=== PATIENT | male | born 1965 | race Caucasian/White ===

== ENCOUNTER → 2020-06-23 | Outpatient (CLI) | payer BC ==
[~2020-06-23] MED LIST: ADDERALL 20 MG20 MG PO; LEXAPRO10 MG PO; LOSARTAN POTASS50 MG PO
== END ==
LOC: RAD 10:35
PROVIDERS: ATTEND Internal Medicine
DX: Z00.00 Encounter for general adult medical examination without abnormal findings (principal)
CPT/HCPCS: 71046

== ENCOUNTER 2022-08-29 22:05 | Inpatient (IN) | payer BC, OTHER ==
[~2022-08-29] VITALS: Ht 182.9 cm; Wt 98.6 kg
[~2022-08-29 22:05] MED LIST changes: +DEXAMETHASONE SOD PHOS INJ 4 MG/ML SDV ONE; +EPHEDRINE SULFATE INJ 50 MG/ML VIAL ONE; +GLYCOPYRROLATE INJ 0.2 MG/ML VIAL ONE; +LIDOCAINE HCL 2% LOCAL INJ 5 ML SDV VIAL INJ ONE; +POVIDONE IODINE 0.05% 0.05 % ML PO ONE; +PROPOFOL IV EMULSION 10 MG/ML 20 ML VIAL ONE
[2022-08-29] MEDS ORDERED: ONDANSETRON HCL INJ 2MG/ML 2ML 2 MG/ML VIAL IV STA (23:13)
[2022-08-29] MEDS ORDERED: SODIUM CHLORIDE 0.9% 1000ML 1,000 ML IV ONE (23:15)
[2022-08-29] MEDS ORDERED: Morphine 4mg INJECTION 4 MG/ML INJ IV ONE (23:15)
[2022-08-30] VITALS (9 sets, daily range): BP systolic 110–166; BP diastolic 74–94; PULSE 71–99; RESP 16–20; TEMP 97.6–98.9; O2SAT 95–100
[2022-08-30 00:34] LABS: BASOPHILS # (AUTO) 0.1 (0.0-0.1); EOSINOPHILS # (AUTO) 0.3 (0.0-0.4); EOSINOPHILS % 4.3 % (0.0-6.0); HEMATOCRIT 51.5 % (38.2-49.6); HEMOGLOBIN 16.7 g/dL (14.0-18.0); LYMPHOCYTES # (AUTO) 2.5 (1.0-3.2); LYMPHOCYTES % 39.6 % (18.0-39.1); MEAN CORPUSCULAR HGB CONC 32.4 g/dL (31-35); MEAN CORPUSCULAR VOLUME 92.5 fL (81-99); MONOCYTES # (AUTO) 0.5 (0.2-0.8); NEUTROPHILS # (AUTO) 2.9 (2.1-6.9); NEUTROPHILS % 46.8 % (38.7-80.0); PLATELET COUNT 259 x10e3/uL (140-360); RED BLOOD COUNT 5.57 x10e6/uL (4.3-5.7); RED CELL DISTRIBUTION WIDTH 13.4 % (11.7-14.4)
[2022-08-30] MEDS: Vancomycin IV 1 GM in SODIUM CHLORIDE 0.9% 250ML 250 ML IV SCH ×3 (00:37→20:42)
[2022-08-30 00:42] LABS: INR 0.82; PROTHROMBIN TIME 11.8 seconds (11.9-14.5)
[2022-08-30 00:43] LABS: PARTIAL THROMBOPLASTIN TIME 29.4 seconds (23.8-35.5)
[2022-08-30 00:52] LABS: ALBUMIN 3.9 g/dL (3.5-5.0); ALBUMIN/GLOBULIN RATIO 1.1 (0.8-2.0); ANION GAP 14.8 mmol/L (8-16); CALCIUM 9.3 mg/dL (8.4-10.2); CREATININE, SERUM 1.01 mg/dL (0.72-1.25); POTASSIUM 4.8 mmol/L (3.5-5.1)
[2022-08-30] MEDS: SODIUM CHLORIDE 0.9% 1000ML 1,000 ML IV SCH ×3 (03:28→16:51)
[2022-08-30] MEDS ORDERED: DEXMETHYLPHENID30 MG PO (03:55)
[2022-08-30] MEDS ORDERED: TESTOSTERONE75 G1 EXT (03:55)
[2022-08-30] MEDS ORDERED: DULOXETINE HCL60 MG PO (03:55)
[2022-08-30] MEDS: Morphine 4mg INJECTION 4 MG/ML INJ IV PRN ×4 (04:56→21:12)
[2022-08-30] MEDS: ONDANSETRON HCL INJ 2MG/ML 2ML 2 MG/ML VIAL IV PRN ×2 (04:56→21:12)
[2022-08-30] MEDS ORDERED: NEOSTIGMINE 1 MG/ML 10ML VIAL ONE (08:59)
[2022-08-30] MEDS ORDERED: BUPIVACAINE HCL 0.5% INJ 30 ML VIAL INJ ONE (08:59)
[2022-08-30] MEDS ORDERED: DEXAMETHASONE SOD PHOS INJ 4 MG/ML SDV ONE (08:59)
[2022-08-30] MEDS ORDERED: ACETAMINOPHEN 1000 MG/100 ML 100 ML IV ONE (09:09)
[2022-08-30] MEDS ORDERED: MIDAZOLAM HCL 2 MG/2 ML VIAL ONE (13:44)
[2022-08-30] MEDS ORDERED: FENTANYL CITRATE/PF 100MCG/2 ML INJ ONE (13:44)
[2022-08-30] MEDS: CEFTRIAXONE 2 GM in SODIUM CHLORIDE 0.9% 100 ML IV SCH (16:50)
[2022-08-30] MEDS: LORATADINE 10 MG TAB PO PRN (22:54)
[2022-08-31] VITALS (7 sets, daily range): BP systolic 103–156; BP diastolic 55–94; PULSE 69–89; RESP 18–20; TEMP 97.6–99; O2SAT 96–100
[2022-08-31] MEDS: ONDANSETRON HCL INJ 2MG/ML 2ML 2 MG/ML VIAL IV PRN ×6 (01:14→22:02)
[2022-08-31] MEDS: SODIUM CHLORIDE 0.9% 1000ML 1,000 ML IV SCH ×3 (01:14→16:44)
[2022-08-31] MEDS: Morphine 4mg INJECTION 4 MG/ML INJ IV PRN ×6 (01:15→22:02)
[2022-08-31 06:22] LABS: BASOPHILS % 0.4 % (0.0-1.0); EOSINOPHILS % 0.4 % (0.0-6.0); HEMATOCRIT 44.7 % (38.2-49.6); HEMOGLOBIN 14.2 g/dL (14.0-18.0); LYMPHOCYTES # (AUTO) 2.1 (1.0-3.2); LYMPHOCYTES % 19.2 % (18.0-39.1); MEAN CORPUSCULAR HEMOGLOBIN 29.7 pg (28-32); MEAN CORPUSCULAR HGB CONC 31.8 g/dL (31-35); MEAN CORPUSCULAR VOLUME 93.5 fL (81-99); MONOCYTES # (AUTO) 0.9 (0.2-0.8); MONOCYTES % 7.9 % (4.4-11.3); NEUTROPHILS # (AUTO) 7.8 (2.1-6.9); NEUTROPHILS % 71.6 % (38.7-80.0); PLATELET COUNT 222 x10e3/uL (140-360); RED BLOOD COUNT 4.78 x10e6/uL (4.3-5.7); RED CELL DISTRIBUTION WIDTH 13.2 % (11.7-14.4)
[2022-08-31 07:14] LABS: ALBUMIN/GLOBULIN RATIO 1.2 (0.8-2.0); ANION GAP 13.5 mmol/L (8-16); CALCIUM 8.3 mg/dL (8.4-10.2); CREATININE, SERUM 0.83 mg/dL (0.72-1.25)
[2022-08-31 07:15] LABS: POTASSIUM 3.5 mmol/L (3.5-5.1)
[2022-08-31] MEDS: Vancomycin IV 1 GM in SODIUM CHLORIDE 0.9% 250ML 250 ML IV SCH ×2 (09:13→20:00)
[2022-08-31] MEDS ORDERED: CHOLESTYRAMINE 4 GM PACKET PO PRN (09:30)
[2022-08-31] MEDS ORDERED: KETOROLAC TROMETHAMINE 30 MG/ML VIAL IV PRN (09:30)
[2022-08-31] MEDS: CEFTRIAXONE 2 GM in SODIUM CHLORIDE 0.9% 100 ML IV SCH (15:38)
[2022-08-31] MEDS: ENOXAPARIN 30 MG/0.3 ML SYR SC SCH (15:38)
[2022-08-31] MEDS: DULOXETINE HCL 30 MG DELAYED RELEASE PO SCH (20:01)
[2022-09-01] VITALS (7 sets, daily range): BP systolic 135–153; BP diastolic 78–101; PULSE 64–85; RESP 18–22; TEMP 97.5–98.8; O2SAT 98–100
[2022-09-01] MEDS: Morphine 4mg INJECTION 4 MG/ML INJ IV PRN ×2 (02:02→11:02)
[2022-09-01] MEDS: ONDANSETRON HCL INJ 2MG/ML 2ML 2 MG/ML VIAL IV PRN ×3 (02:02→18:28)
[2022-09-01] MEDS: SODIUM CHLORIDE 0.9% 1000ML 1,000 ML IV SCH ×3 (02:16→16:26)
[2022-09-01] MEDS: LOSARTAN POTASSIUM 25 MG TAB PO SCH (09:00)
[2022-09-01] MEDS: DULOXETINE HCL 30 MG DELAYED RELEASE PO SCH (09:21)
[2022-09-01] MEDS: Vancomycin IV 1 GM in SODIUM CHLORIDE 0.9% 250ML 250 ML IV SCH ×2 (09:23→22:52)
[2022-09-01] MEDS: ENOXAPARIN 30 MG/0.3 ML SYR SC SCH (16:25)
[2022-09-01] MEDS: CEFTRIAXONE 2 GM in SODIUM CHLORIDE 0.9% 100 ML IV SCH (16:26)
[2022-09-01] MEDS: LORATADINE 10 MG TAB PO PRN (16:32)
[2022-09-01] MEDS: HYDROCODONE/APAP 5MG-325MG TAB PO PRN (21:50)
[2022-09-02] VITALS: BP 113/65; PULSE 82; RESP 18; TEMP 98; O2SAT 99
[2022-09-02] MEDS: SODIUM CHLORIDE 0.9% 1000ML 1,000 ML IV SCH ×2 (01:00→09:00)
[2022-09-02 04:00] VITALS: BP 128/70; PULSE 88; RESP 18; TEMP 98.5; O2SAT 99
[2022-09-02] MEDS: Vancomycin IV 1 GM in SODIUM CHLORIDE 0.9% 250ML 250 ML IV SCH (09:00)
[2022-09-02 09:13] VITALS: BP 127/81; PULSE 58; RESP 19; TEMP 98; O2SAT 98
[2022-09-02] MEDS: DULOXETINE HCL 30 MG DELAYED RELEASE PO SCH (09:29)
[2022-09-02] MEDS: HYDROCODONE/APAP 5MG-325MG TAB PO PRN (09:31)
[2022-09-02] MEDS: LOSARTAN POTASSIUM 25 MG TAB PO SCH (09:32)
[2022-09-02] MEDS: ONDANSETRON HCL INJ 2MG/ML 2ML 2 MG/ML VIAL IV PRN (09:32)
[2022-09-02 12:41] VITALS: BP 148/94; PULSE 86; RESP 19; TEMP 98; O2SAT 98
== END 2022-09-02 14:44 | disposition home or self-care (01) | DRG 902 ==
LOC: ER 22:15 → ERHOLD 08-30 00:53 → MED/SURG3 08-30 03:00
PROVIDERS: ADMIT Family Medicine; ATTEND Family Medicine
PROC: 0JCR0ZZ Extirpation of Matter from Left Foot Subcutaneous Tissue and Fascia, Open Approach (ICD-10-PCS; 2022-08-30)
PROC: 0JBR0ZZ Excision of Left Foot Subcutaneous Tissue and Fascia, Open Approach (ICD-10-PCS; principal; 2022-08-30 09:10)
DX: S91.342A Puncture wound with foreign body, left foot, initial encounter (principal); L02.612 Cutaneous abscess of left foot; L03.116 Cellulitis of left lower limb; I10 Essential (primary) hypertension; F41.9 Anxiety disorder, unspecified; F17.200 Nicotine dependence, unspecified, uncomplicated; W26.9XXA Contact with unspecified sharp object(s), initial encounter; Z20.822 Contact with and (suspected) exposure to COVID-19
CPT/HCPCS: 0223U; 36415; 71045; 76000; 80053; 80202; 82948; 85025; 85610; 85730; 87040; 87071; 87075; 87186; 87205; 88300; 93005; 96361; 99284; J0690; J0696; J1100; J1650; J1885; J2001; J2250; J2270; J2405; J2543; J2710; J7030; J7050